=== PATIENT | male | born 1955 | race African-American/Black ===

== ENCOUNTER 2019-06-30 06:01 | Day surgery (SDC) | payer OTHER ==
--- NOTE | 2019-06-29 13:40 | Short Stay Summary ---
Short Stay Documentation Date of service: 06/30/19 - History H&P: obtained from office - Allergies and Medications Current Medications: Allergies No Known Allergies Allergy (Verified 06/24/19 12:35) Home Medications Medication Instructions Recorded Confirmed Last Taken Type Enalapril Maleate [Vasotec] 10 mg PO QDAY 06/24/19 06/24/19 Unknown History Simvastatin 20 mg PO QHS 06/24/19 06/24/19 Unknown History - Physical exam General appearance: no acute distress Integumentary: no rash HEENT: Atraumatic Lungs: Normal air movement Neurological: Normal speech - Brief post op/procedure progress note Date of procedure: 06/30/19 (dictation:[id number]) Pre-op diagnosis: soft tissue mass on back Post-op diagnosis: same Procedure: Excision of soft tissue mass on back IVf 100cc EBL min Anesthesia: MAC Findings: [id number] lipomatous mass Surgeon: LEOBARDO AMIN Estimated blood loss: minimal Pathology: list (lipomatous mass) Specimen disposition: to lab Condition: stable - Hospital course Hospital course: uneventful - Disposition Condition at discharge: Stable Disposition: DC-01 TO HOME OR SELFCARE Short Stay Discharge Plan Activity: advance as tolerated Diet: regular Wound: open to air, keep clean and dry Special Instructions: no heavy lifting Additional Instructions: Post Operative Instructions Activity: no heavy lifting for next 1 week. May shower tomorrow. Pat dry the wound or wounds. Keep incision sites clean and dry After surgery, start with a light diet. Consider starting with liquids. If you do well, you can advance to a regular diet as you feel comfortable. Apply an ice pack to the wound or wounds for 10-20 minutes at a time. Do this at least 4-5 times a day. You can do it more if he would like. Pain Medication Schedule for the first 2 days after surgery: Gabapentin 300mg twice a day Celebrex (celecoxib) 200mg twice a day Tylenol 500mg four times a day (every 6 hours) After the first 2 days, then take alternating doses of ibuprofen and Tylenol as needed for pain. Take 600 mg of ibuprofen every 6 hours as needed. Take 500 mg of Tylenol every 6 hours as needed. You should alternate these 2 medicines. Make sure you take the ibuprofen with food. It is very important that you use the prescription narcotic pain medicine (hydrocodone) only for very severe pain. Do not take the narcotic medicine before you try using all the medications listed above. We will call you in a couple of days to see how youre doing. If you have any questions or concerns, always feel free to call the clinic ([phone]) at any time. Follow up with: [facility]INKLE [Other] - 7 Days LEOBARDO AMIN MD [Staff Physician] - 14 Days Forms: Work/School Release Form Prescriptions: RX: Celecoxib [celeBREX] 200 mg PO BID #4 capsule RX: Gabapentin 300 mg PO BID #4 capsule RX: HYDROcodone/APAP 5-325 [[place] 5-325 mg TAB] 1 each PO Q6HR PRN #6 tablet PRN Reason: Pain
[~2019-06-30 06:01] MED LIST: ACETAMINOPHEN 500 MG TAB PO ONE; CELECOXIB 200 MG CAP PO NR; GABAPENTIN 300 MG CAP PO SCH; SODIUM CHLORIDE 0.9% 1000 ML 1,000 ML IV SCH; ceFAZolin/Water 2 GM/20 ML 2 GM/20 ML SYRINGE IV NR
[2019-06-30] MEDS ORDERED: ONDANSETRON 4 MG/2 ML INJ IV PRN (06:29)
[2019-06-30] MEDS ORDERED: fentaNYL 100 MCG/2 ML INJ IV PRN (06:29)
[2019-06-30] MEDS ORDERED: HYDROmorphone 1 MG/1 ML INJ IV PRN (06:29)
--- NOTE | 2019-06-30 06:29 | Anesthesia Day of Surgery ---
Anesthesia Day of Surgery - Day of Surgery Patient Examined: Yes Patient H&P Reviewed: Yes Patient is NPO: Yes
--- NOTE | 2019-06-30 06:29 | Anesthesia Consultation ---
Anesthesia Consult and Med Hx Date of service: 06/30/19 - Airway Anesthetic Teeth Evaluation: Good ROM Head & Neck: Adequate Mental/Hyoid Distance: Adequate Mallampati Class: Class I Intubation Access Assessment: Good - Pulmonary Exam CTA: Yes - Cardiac Exam Cardiac Exam: RRR - Pre-Operative Health Status ASA Pre-Surgery Classification: ASA2 Proposed Anesthetic Plan: General - Cardiovascular System Hx Hypertension: Yes (X 4YRS) - Central Nervous System Hx Psychiatric Problems: No - Other Systems Hx Alcohol Use: No Hx Substance Use: No Hx Cancer: No
[2019-06-30] MEDS ORDERED: LACTATED RINGERS 1,000 ML IV SCH (07:00)
[2019-06-30] MEDS ORDERED: BUPIVACAINE-EPINEPHRINE/PF 0.5%-1:200,000 (30 ML) VIAL INFILTRATI ONE ×2 (07:17→08:00)
[2019-06-30] MEDS ORDERED: LIDOCAINE (1%) 10 MG/1 ML VIAL 20 ML MDV ONE (07:17)
[2019-06-30] MEDS ORDERED: MIDAZOLAM 2 MG/2 ML INJ ONE (07:29)
[2019-06-30] MEDS ORDERED: propofoL 200 MG/20 ML VIAL IV ONE (07:29)
[2019-06-30] MEDS ORDERED: LIDOCAINE MPF (2%) 20 MG/1 ML VIAL 5 ML ONE (07:29)
[2019-06-30] MEDS ORDERED: SODIUM CHLORIDE 0.9% IRR 1,500 ML BOTTLE IR ONE (08:00)
[2019-06-30] MEDS ORDERED: LIDOCAINE (1%) 10 MG/1 ML VIAL 20 ML MDV INFILTRATI ONE (08:00)
[2019-06-30] MEDS ORDERED: KETOROLAC 30 MG/1 ML INJ ONE ×2 (08:03)
[2019-06-30] MEDS ORDERED: ONDANSETRON 4 MG/2 ML INJ ONE (08:03)
[2019-06-30 09:06] VITALS: BP 120/72
--- NOTE | 2019-06-30 09:50 | Operative Report ---
PREOPERATIVE DIAGNOSIS: Soft tissue mass on back. POSTOPERATIVE DIAGNOSIS: Soft tissue mass on back. PROCEDURE: Excision of soft tissue mass on back. ATTENDING PHYSICIAN: Ghasasn Alcantara MD ANESTHESIA: Local MAC. ESTIMATED BLOOD LOSS: Minimal. FLUIDS: 100 mL. FINDINGS: A 3.5 x 2 x 2 cm lipomatous mass in the subcutaneous tissue layer. No invasion into surrounding structures. SPECIMENS: Same as above. DRAINS: None. COMPLICATIONS: None. DISPOSITION: Stable, transferred to Recovery Room. INDICATIONS: This is a 63-year-old male who presented to the office with complaints of an enlarging back mass that causes him pain, especially when pressure is applied. The patient wished to be considered for excision. Procedure, risks, benefits were explained to the patient. Risks include but were not limited to infection, bleeding, pain, injury to surrounding structures, possible need for further procedures in the future. The patient understood and consented. OPERATIVE NOTE: The patient was brought to the operating room and placed on table in a right lateral decubitus position. All pressure points were padded. SCDs were placed. Sedation was established. Antibiotics had been given. Time-out was called. I began by injecting the planned incision site that we marked out at the beginning of the case. Once this was done, skin was incised sharply. Dissection was carried down to the mass. We immediately were able to identify lipomatous mass that was fairly easily from the surrounding tissue. Mass was excised intact and passed off table in sterile fashion after being measured. Hemostasis was achieved with electrocautery. Additional local was injected. Wound was thoroughly irrigated. Deep layer of skin was closed with interrupted 3-0 Vicryl suture. Skin was closed with a running 4-0 Monocryl subcuticular stitch. Skin was cleaned and dried. Dermabond was placed. The patient tolerated the procedure well. There were no complications. All counts were correct at the end of the case. JOB# [id number] LEX/KEARA
--- NOTE | 2019-06-30 21:14 | Post Anesthesia Evaluation ---
- Post Anesthesia Evaluation Patient Participated: Yes Airway Patent: Yes Stable Respiratory Function: Yes Nausea/Vomiting: No Temp > 96.8F: Yes Pain Manageable: Yes Adequeate Hydration: Yes Anesthesia Complications: No Block Receding Appropriately: Not Applicable Patient on Ventilator: No
== END 2019-06-30 06:02 | disposition home or self-care (01) ==
LOC: OR 06:01
PROVIDERS: ATTEND Surgery
DX: M79.9 Soft tissue disorder, unspecified (principal); D23.5 Other benign neoplasm of skin of trunk; I10 Essential (primary) hypertension; E78.00 Pure hypercholesterolemia, unspecified; Z79.899 Other long term (current) drug therapy; Z98.890 Other specified postprocedural states
CPT/HCPCS: 21931; 88305; J0690; J1170; J1885; J2250; J2405; J2704; J7030; 88307